=== PATIENT | male | born 1995 | race American Indian/Alaskan Native ===

== ENCOUNTER 2021-05-14 19:01 | Emergency (ER) | payer SELFPAY ==
[2021-05-14 19:10] VITALS: BP 114/60
== END 2021-05-14 22:13 | disposition left against medical advice (07) ==
LOC: ED 19:01
DX: J02.9 Acute pharyngitis, unspecified (principal); Z53.21 Procedure and treatment not carried out due to patient leaving prior to being seen by health care provider